=== PATIENT | female | born 1960 | race Caucasian/White ===

== ENCOUNTER → 2017-01-11 | Outpatient (CLI) | payer BC ==
--- NOTE | 2017-01-11 17:11 | REP ---
BILATERAL MAMMOGRAM: History of breast cancer in paternal grandmother. No comparison study. MLO and CC views of both breasts are performed. Moderate fibroglandular tissue is seen bilaterally. Possible 7 mm nodular opacity is seen in the upper outer quadrant of the left breast. Spot compression views and ultrasound recommended to further evaluate. Tiny calcifications are seen in upper outer quadrant of the right breast. Recommend magnification views to further evaluate. IMPRESSION: ACR 0 incomplete. Tiny calcifications upper outer quadrant right breast. Recommend magnification views to further evaluate. Possible 7 mm nodule upper outer quadrant of the left breast. Recommend spot compression views and ultrasound to further evaluate. BI-RADS/ACR category 0 mammogram, incomplete. Additional imaging and/or prior images are needed before a final assessment can be assigned. This mammogram was interpreted with the aid of an FDA-approved computer-aided detection system. The patient states she had a clinical breast exam in 12/2016. The patient letter being requested is M0.
== END ==
LOC: M WHC 15:07
PROVIDERS: ATTEND Nurse Practitioner Family
DX: Z12.31 Encounter for screening mammogram for malignant neoplasm of breast (principal)

== ENCOUNTER → 2017-01-16 | Outpatient (CLI) | payer BC ==
--- NOTE | 2017-01-16 17:16 | REP ---
LEFT BREAST ULTRASOUND: 01/16/2017: Comparison: Diagnostic digital bilateral mammogram 01/16/2017, screening mammogram 01/11/2017. Clinical history: Persistent nodular density upper outer quadrant left breast for ultrasound. Sonographic evaluation of the upper outer quadrant of the left breast scanning from 12 to 3 o'clock shows at 1 o'clock a septated cyst about 1.9 cm from the nipple. It measures 5 x 4 x 3 mm and has no mammographic correlate. About 3 cm from the nipple also at 1 o'clock is a larger more complex cystic area 6 x 6 x 4 mm. It has some internal echoes but still with some through transmission. At the 3 o'clock position. There is some mildly dilated ducts without filling defects. Impression: 1. The larger complex cystic area with multiple internal echoes and/or septation 6 x 6 x 4 mm at 1 o'clock position right breast about 3 cm from the nipple corresponding to the mammographic finding. The smaller septated cysts were two adjacent cysts seen at 1 o'clock, closer to the nipple, but without the mammographic correlation. Please see the mammography report this date for final assessment and recommendation. Signed by Stef Zhang MD 01/16/2017 05:48 P
--- NOTE | 2017-01-16 17:27 | REP ---
BILATERAL DIAGNOSTIC DIGITAL MAMMOGRAM: 01/16/2017: Comparison: 01/11/2017, screening mammogram. Clinical history: Recent screening mammogram with calcifications in the upper outer quadrant of the right breast for magnification views and nodular density upper outer quadrant of the left breast for ultrasound and spot magnification views. Findings: Spot magnified CC, MLO and true MLO views of each breast were obtained. Right breast: Spot magnified views show two or three calcifications adjacent in the upper outer quadrant right breast. This does not define a cluster. I do not see other suspicious group of clusters of microcalcification, areas of architectural distortion, dominant mass, skin thickening or other secondary sign of malignancy. A mole marker placed over upper outer quadrant right breast, near the axillary tail or a skin mole. Left breast: In the upper outer quadrant of the left breast at about the 1 o'clock position is a 8 x 7 mm oval nodule. Slightly lobulated. It projects over parenchyma on the CC view and surrounded by fat on the MLO view and ML view without suspicious calcifications. There is no other nodule, mass, clustered microcalcification, skin thickening or other secondary sign of malignancy. Left breast ultrasound: The breast ultrasound showed a 6 x 6 x 4 mm complex cystic area in the left breast upper outer quadrant 1 o'clock position about 3 cm from the nipple. It has internal echoes and and/or multiple septations. A smaller septated cyst or two adjacent small cysts totaling 5 x 4 x 3 mm is seen at 1 o'clock position. 1.9 cm from the nipple, but without a mammographic correlation. There are a few mildly dilated ducts at the 3 o'clock position without filling defect. Impression: 1. BIRADS ACR category 4 suspicious, suspicious abnormality. Biopsy should be considered. Ultrasound guided biopsy/cyst aspiration at the 1 o'clock position left breast about 3 cm from nipple, where there is a 6 x 6 x 4 mm complex cystic lesion. The other cyst with septation or two adjacent cysts does not warrant further evaluation. 2. Calcifications in the upper outer quadrant of the right breast are only 2 to 3 in number and do not constitute a cluster or suspicious finding. This mammogram was interpreted with the aid of an FDA-approved computer-aided detection system. The patient states she had a clinical breast exam in 12/2016. The patient letter being requested is M4 dense. Signed by Stef Zhang MD 01/16/2017 05:50 P
== END ==
LOC: M RAD 14:53
PROVIDERS: ATTEND Nurse Practitioner Family
DX: R92.8 Other abnormal and inconclusive findings on diagnostic imaging of breast (principal)

== ENCOUNTER → 2017-02-07 | Outpatient (CLI) | payer BC ==
[~2017-02-07] MED LIST: ACETAMINOPHEN 325 MG TAB As Ordered ONE; LIDOCAINE 1% MDV 20ML VIAL As Ordered ONE
--- NOTE | 2017-02-07 11:13 | REP ---
DIGITAL DIAGNOSTIC UNILATERAL LEFT BREAST MAMMOGRAM WITH CAD: HISTORY: Two-view mammogram post clip marker placement views. Patient is status post ultrasound-guided needle biopsy. Comparison mammography is from January 16, 2017. FINDINGS: Left CC and true MLO views demonstrate marker clip in position at or within the nodular opacity which projected in the upper outer quadrant of the left breast on the January 16, 2017 prior study. No hematoma is seen. IMPRESSION: Marker clip in good position. Signed by Yasir Brown MD 02/07/2017 06:17 P
--- NOTE | 2017-02-07 15:42 | REP ---
ULTRASOUND GUIDED LEFT BREAST BIOPSY: The procedure was performed under the direct supervision of Dr. Brown. The patient has a history of a 6 x 6 x 4 mm complex cystic area with multiple internal echoes and/or septations at the 1-o'clock position of the left breast seen on a previous ultrasound dated 01/16/2017. The risks and benefits of the procedure were explained to the patient and informed consent was obtained. The left breast nodule was localized using ultrasound guidance. The skin was prepped and draped in a sterile fashion. 1% Xylocaine was used as a local anesthetic. A 13-gauge suction-assisted Mammotome needle was inserted and 4 core biopsy samples were obtained. A marker clip was placed at the biopsy site. The patient tolerated the procedure well and there were no immediate complications. After the appropriate amount of monitored convalescence the patient was discharged from the department. Reviewed by LAUREN Senior 02/07/2017 04:29 PEdited and Signed by Yasir Brown MD 02/07/2017 06:13 P
== END | disposition home or self-care (01) ==
LOC: M RADPRO 09:13
PROVIDERS: ATTEND Surgery
DX: N60.92 Unspecified benign mammary dysplasia of left breast (principal); F17.200 Nicotine dependence, unspecified, uncomplicated
CPT/HCPCS: 19083; 88305; G0206

== ENCOUNTER → 2017-05-02 | Outpatient (REF) | payer BC | LOC: M SFHCPLAZ 14:58 | PROVIDERS: ATTEND Family Medicine | DX: R53.83 Other fatigue (principal) ==

== ENCOUNTER → 2017-06-21 | Outpatient (REF) | payer BC ==
[2017-06-21 17:21] LABS: MEAN CORPUSCULAR HEMOGLOBIN 31.8 pg (27.0-33.0); MEAN CORPUSCULAR HGB CONC 33.1 g/dl (32.0-36.5); MEAN CORPUSCULAR VOLUME 96.2 fl (80.0-96.0); RED CELL DISTRIBUTION WIDTH 12.6 % (11.5-14.5); WHITE BLOOD COUNT 10.7 K/mm3 (4.0-10.0)
[2017-06-21 17:30] LABS: INR 0.98
== END ==
LOC: M SFHCPLAZ 15:49
PROVIDERS: ATTEND Family Medicine
DX: R23.8 Other skin changes (principal)

== ENCOUNTER → 2017-08-01 | Outpatient (REF) | payer BC | LOC: M SFHCPLAZ 14:52 | PROVIDERS: ATTEND Family Medicine | DX: Z78.9 Other specified health status (principal) ==

== ENCOUNTER → 2018-02-01 | Outpatient (CLI) | payer BC ==
[2018-02-01 12:14] LABS: CHOLESTEROL LEVEL 243 MG/DL (<200); CHOLESTEROL RISK RATIO 3.375 (<5); GLUCOSE, FASTING 105 MG/DL (70-100); HDL CHOLESTEROL 72 MG/DL (>40); NON-HDL-C 171 MG/DL; TRIGLYCERIDES LEVEL 165 MG/DL (<150)
== END ==
LOC: M LAB 11:19
DX: Z12.31 Encounter for screening mammogram for malignant neoplasm of breast (principal); Z64.4 Discord with counselors; R07.1 Chest pain on breathing; M79.672 Pain in left foot; Z13.1 Encounter for screening for diabetes mellitus; Z13.220 Encounter for screening for lipoid disorders
CPT/HCPCS: 71101

== ENCOUNTER → 2018-03-22 | Outpatient (REF) | payer BC ==
[2018-03-22 15:49] LABS: ESTIMATED AVERAGE GLUCOSE 123 MG/DL (60-110); HEMOGLOBIN A1c 5.9 %
== END ==
LOC: M SFHCPLAZ 13:24
DX: R73.01 Impaired fasting glucose (principal)
CPT/HCPCS: 83036

== ENCOUNTER 2018-07-09 08:18 | Day surgery (SDC) | payer BC ==
[2018-07-09] MEDS: NS 1,000 ML IV (08:30)
[2018-07-09] MEDS ORDERED: PROPOFOL 200 MG/20 ML VIAL As Ordered ×2 (09:00→09:10)
== END 2018-07-09 10:11 | disposition home or self-care (01) ==
LOC: M OPP 08:18
DX: Z12.11 Encounter for screening for malignant neoplasm of colon (principal); K62.1 Rectal polyp; K57.30 Diverticulosis of large intestine without perforation or abscess without bleeding; Z80.0 Family history of malignant neoplasm of digestive organs; F41.9 Anxiety disorder, unspecified; F32.9 Major depressive disorder, single episode, unspecified; B19.9 Unspecified viral hepatitis without hepatic coma; Z79.899 Other long term (current) drug therapy; Z78.0 Asymptomatic menopausal state; Z98.51 Tubal ligation status; F17.210 Nicotine dependence, cigarettes, uncomplicated
CPT/HCPCS: 45385

== ENCOUNTER → 2018-08-07 | Outpatient (CLI) | payer BC | LOC: M RAD 14:45 | DX: R29.898 Other symptoms and signs involving the musculoskeletal system (principal) | CPT/HCPCS: 70551 ==

== ENCOUNTER → 2018-09-26 | Outpatient (REF) | payer BC ==
[2018-10-02 14:49] LABS: HPV HYBRID CAPTURE II Negative (Negative)
== END ==
LOC: M SFHCPLAZ 11:38
DX: Z12.4 Encounter for screening for malignant neoplasm of cervix (principal)
CPT/HCPCS: G0123

== ENCOUNTER → 2019-01-27 | Outpatient (CLI) | payer BC ==
[~2019-01-27] MED LIST changes: -ACETAMINOPHEN 325 MG TAB As Ordered ONE; +ESCI10TA2; -LIDOCAINE 1% MDV 20ML VIAL As Ordered ONE
--- NOTE | 2019-01-27 20:27 | REP ---
Clinical: Cervical adenopathy. Technique: Real time whitt scale and color evaluation using linear high frequency transducer. Findings: Directed ultrasound examination along the right side of the neck appears normal and without evidence for adenopathy. The palpable area on physical examination corresponds to the submandibular gland. Impression: No adenopathy. Palpable mass on physical examination corresponds to submandibular gland. Electronically Signed by Gabino Brooke MD 01/27/2019 08:19 P
== END ==
LOC: M RAD 14:45
PROVIDERS: ATTEND Family Medicine
DX: I89.0 Lymphedema, not elsewhere classified (principal)

== ENCOUNTER → 2019-01-31 | Outpatient (CLI) | payer BC ==
--- NOTE | 2019-01-31 13:33 | REPMRS ---
Patient History The patient states she had a clinical breast exam in 08/13 Patient is postmenopausal. Family history of breast cancer at age 50 or over in paternal grandmother, colorectal cancer in father. Benign US guided breast biopsy of the left breast, February 07, 2017. Benign lumpectomy of the right breast, 2000. 3D TOMOSYNTHESIS WAS PERFORMED. Digital Woman Screen Mammo: January 31, 2019 - Exam #: [id number] Bilateral CC and MLO view(s) were taken. Technologist: Tonya Sorto, Technologist Prior study comparison: February 01, 2018, left breast digital mammo diagnostic bilateral, performed at [facility]. February 07, 2017, left breast digital mammo diagnostic unilateral, performed at [facility]. FINDINGS: The breast tissue is heterogeneously dense. This may lower the sensitivity of mammography. There has been no change in the appearance of the mammogram from the prior studies. There is a moderate amount of residual fibroglandular tissue which is fairly symmetric. There is no interval development of dominant mass, areas of architectural distortion, or clustered microcalcification typical of malignancy. Assessment: BI-RADS/ACR category 1 mammogram. Negative Mammogram. Recommendation Routine screening mammogram in 1 year (for women over age 40). This mammogram was interpreted with the aid of an FDA-approved computer-aided dectection system. Electronically Signed By: Castillo Moss MD 01/31/19 [id number]
== END ==
LOC: M WHC 12:36
PROVIDERS: ATTEND Physician Assistant
DX: Z12.31 Encounter for screening mammogram for malignant neoplasm of breast (principal); Z78.0 Asymptomatic menopausal state; Z86.018 Personal history of other benign neoplasm

== ENCOUNTER → 2019-02-21 | Outpatient (CLI) | payer BC ==
--- NOTE | 2019-02-21 15:15 | REP ---
CT chest without contrast: History: Abnormal lung field findings. Comparison study is rib series from February 01, 2018. No other comparison chest imaging available. CT findings: Preliminary digital painter ski edge radiograph is unremarkable. There are emphysematous changes in the upper lobes of the lungs bilaterally mild to moderate in degree. There is no evidence of pleural effusion or pericardial effusion. No infiltrate is seen. No hilar or mediastinal mass or adenopathy is observed. No adrenal lesion is seen. The gallbladder is surgically absent. The visualized upper abdominal structures are otherwise unremarkable. There is some vascular calcification. No significant pulmonary nodule or mass lesion is seen. No bony destructive lesion is observed. Impression: Emphysematous changes in the upper lobes. No other significant finding. Electronically Signed by Yasir Brown MD 02/21/2019 03:35 P
== END ==
LOC: M RAD 14:13
PROVIDERS: ATTEND Physician Assistant
DX: R91.8 Other nonspecific abnormal finding of lung field (principal); J43.9 Emphysema, unspecified

== ENCOUNTER → 2019-04-03 | Outpatient (CLI) | payer BC ==
[~2019-04-03] MED LIST changes: +METHACHOLINE KIT (J7674) INH ONE
--- NOTE | 2019-04-03 15:13 | PFTRPT ---
Site: [facility], [address] [place], [address] ID: [id number] Name: TANA MERCEDES Visit Date: 04/03/2019 Second ID: [id number] Referring Doctor: LIAN Chu, Veronica Desai Reviewing Doctor: Zenon Marr MD Electrician Maintenance: Danay GEE RRT Age: 58 : 1960 Sex: Female Race: Height: 62.00 Inches Weight: 165.00 Lbs BSA: 1.76 Order IDs: [id number] Requested Test(s): <RESP-PFT.METH CHAL> Diagnosis: R94.2 of albuterol for postbronchodilator. Review Status: Not Reviewed Pre-Bronch Post-Bronch Pred Actual %Pred Actual %Chng SPIROMETRY FVC (L) 3.14 3.01 95 2.94 -2 FEV1 (L) 2.45 2.29 93 2.24 -2 FEV1/FVC (%) 79 76 96 76 FEF 25% (L/sec) 4.84 5.45 112 6.01 10 FEF 50% (L/sec) 3.72 2.61 70 2.44 -6 FEF 75% (L/sec) 1.28 0.61 47 0.48 -20 FEF 25-75% (L/sec) 2.36 1.84 77 1.66 -9 FEF Max (L/sec) 6.15 6.52 106 6.07 -6 FIVC (L) 2.79 2.70 -3 FIF 50% (L/sec) 3.52 2.80 79 3.11 10 FIF Max (L/sec) 2.88 3.19 10 Expiratory Time (sec) 6.16 7.73 25 Back Extrap Vol (L) 0.08 0.09 16 Time To FEFmax (sec) 0.072 0.104 44
== END ==
LOC: M CARPUL 14:25
PROVIDERS: ATTEND Physician Assistant
DX: R94.2 Abnormal results of pulmonary function studies (principal)
CPT/HCPCS: 94070; J7674

== ENCOUNTER → 2019-07-09 | Outpatient (CLI) | payer BC ==
[~2019-07-09] MED LIST changes: +GASTROGRAFIN SOLUTION 30ML (Q9963) As Ordered ONE; +ISOVUE-370 76% 100ML VIAL (Q9967) As Ordered ONE; -METHACHOLINE KIT (J7674) INH ONE
[2019-07-09 13:27] LABS: BASO # 0.1 10^3/uL (0.0-0.2); BASO % 0.5 % (0.0-1.0); EOS # 0.1 10^3/uL (0.0-0.50); EOS % 0.5 % (0.0-3.0); HEMATOCRIT 41.3 % (36.0-47.0); HEMOGLOBIN 13.7 g/dl (12.0-15.5); LYMPH # 2.6 10^3/uL (1.5-4.5); LYMPH % 19.9 % (24.0-44.0); MEAN CORPUSCULAR HEMOGLOBIN 31.2 pg (27.0-33.0); MEAN CORPUSCULAR HGB CONC 33.2 g/dl (32.0-36.5); MEAN CORPUSCULAR VOLUME 94.1 fl (80.0-96.0); MONO # 1.1 10^3/uL (0.0-0.8); MONO % 8.3 % (0.0-5.0); NEUTROPHILS # 9.3 10^3/uL (1.8-7.7); NEUTROPHILS % 70.3 % (36.0-66.0); PLATELET COUNT, AUTOMATED 357 10^3/uL (150-450); RED BLOOD COUNT 4.39 10^6/uL (4.00-5.40); WHITE BLOOD COUNT 13.3 10^3/uL (4.0-10.0)
[2019-07-09 13:55] LABS: BLOOD UREA NITROGEN 11 MG/DL (7-18); CALCIUM LEVEL 9.9 MG/DL (8.5-10.1); CARBON DIOXIDE LEVEL 26 MEQ/L (21-32); CHLORIDE LEVEL 104 MEQ/L (98-107); CREATININE FOR GFR 0.94 MG/DL (0.55-1.30); GLOMERULAR FILTRATION RATE > 60.0 (>51); GLUCOSE, FASTING 124 MG/DL (70-100); SODIUM LEVEL 138 MEQ/L (136-145)
[2019-07-09 14:47] LABS: HEMOGLOBIN A1c 6.3 %
--- NOTE | 2019-07-09 16:19 | REP ---
CT abdomen and pelvis with IV and oral contrast: History: Left lower quadrant pain. No comparison CT study. CT contrast dose: 100 ml of intravenous Isovue 370. CT findings: Preliminary digital restaurant hostess radiograph shows clips in the right upper quadrant and a normal bowel gas pattern. The lung bases show mild fibrosis or discoid atelectasis in the right lower lobe. There is diffuse fatty infiltration of the liver. No focal liver lesion is apparent. The gallbladder is surgically absent. The common bile duct measures 11 mm in greatest diameter. No intrahepatic ductal dilation is observed. There is a small descending duodenal diverticulum filled with air. No pancreatic lesion is seen. No adrenal lesion is observed on either side. The kidneys enhance symmetrically and are morphologically intact. No retroperitoneal mass or adenopathy is seen. There is mural thickening and pericolonic fat streaking in the sigmoid colon adjacent to diverticulosis changes consistent with acute diverticulitis. No abscess or free air is apparent. No uterine or ovarian abnormality is seen. No abdominal wall defect is observed. Bone window settings show no bony destructive lesion. Impression: Findings consistent with acute diverticulitis in the sigmoid colon. There is no evidence of abscess or free air. Post cholecystectomy. Fatty infiltration of the liver. Electronically Signed by Yasir Brown MD 07/09/2019 09:06 P
== END ==
LOC: M RAD 12:51
PROVIDERS: ATTEND Family Medicine
DX: K57.92 Diverticulitis of intestine, part unspecified, without perforation or abscess without bleeding (principal); Z90.49 Acquired absence of other specified parts of digestive tract; K76.0 Fatty (change of) liver, not elsewhere classified
CPT/HCPCS: 74177; 80048; 83036; 85025; Q9963; Q9967

== ENCOUNTER 2020-01-07 09:26 | Emergency (ER) | payer BC ==
[~2020-01-07] VITALS: Ht 157.5 cm; Wt 76.8 kg
[~2020-01-07 09:26] MED LIST changes: -GASTROGRAFIN SOLUTION 30ML (Q9963) As Ordered ONE; -ISOVUE-370 76% 100ML VIAL (Q9967) As Ordered ONE
[2020-01-07] MEDS ORDERED: BREO1INH3 PO (12:08)
[2020-01-07] MEDS ORDERED: SYMB16INH INH (12:08)
[2020-01-07 12:13] LABS: BASO # 0.1 10^3/uL (0.0-0.2); BASO % 0.7 % (0.0-1.0); EOS # 0.1 10^3/uL (0.0-0.5); EOS % 1.1 % (0.0-3.0); HEMATOCRIT 41.1 % (36.0-47.0); HEMOGLOBIN 13.7 g/dl (12.0-15.5); LYMPH # 2.9 10^3/uL (1.5-5.0); LYMPH % 40.7 % (24.0-44.0); MEAN CORPUSCULAR HEMOGLOBIN 31.3 pg (27.0-33.0); MEAN CORPUSCULAR HGB CONC 33.3 g/dl (32.0-36.5); MEAN CORPUSCULAR VOLUME 93.8 fl (80.0-96.0); MONO # 0.6 10^3/uL (0.0-0.8); MONO % 8.7 % (0.0-5.0); NEUTROPHILS # 3.5 10^3/uL (1.5-8.5); NEUTROPHILS % 48.5 % (36.0-66.0); PLATELET COUNT, AUTOMATED 389 10^3/uL (150-450); RED BLOOD COUNT 4.38 10^6/uL (4.00-5.40); WHITE BLOOD COUNT 7.2 10^3/uL (4.0-10.0)
[2020-01-07 12:19] LABS: AMORPHOUS SEDIMENT SMALL (NEGATIVE); APPEARANCE, URINE CLEAR (CLEAR); BACTERIA, URINE AUTO NEGATIVE (NEGATIVE); BILIRUBIN, URINE AUTO NEGATIVE (NEGATIVE); BLOOD, URINE BLOOD NEGATIVE (NEGATIVE); COLOR, URINE YELLOW (YELLOW); GLUCOSE, URINE (UA) AUTO NEGATIVE (NEGATIVE); KETONE, URINE AUTO NEGATIVE (NEGATIVE); LEUKOCYTE ESTERASE, URINE AUTO TRACE (NEGATIVE); NITRITE, URINE AUTO NEGATIVE (NEGATIVE); PROTEIN, URINE AUTO NEGATIVE (NEGATIVE); RBC, URINE AUTO 1 /HPF (0-3); SPECIFIC GRAVITY URINE AUTO 1.006 (1.002-1.035); SQUAMOUS EPITHELIAL CELL UR AU 1 /HPF (0-6); UROBILINOGEN, URINE AUTO 0.2 mg/dL (0.0-2.0); WBC, URINE AUTO 1 /HPF (0-3)
[2020-01-07] MEDS ORDERED: ONDANSETRON 4MG/2ML VIAL (J2405) IV ONE (13:00)
[2020-01-07] MEDS ORDERED: KETOROLAC 30 MG/ML VIAL (J1885) IV ONE (13:00)
--- NOTE | 2020-01-07 14:03 | REP ---
MAXILLOFACIAL CT STUDY WITHOUT CONTRAST: HISTORY: Headache and facial pain. Comparison head CT images are from August 03, 2005. CT FINDINGS: Digital preliminary [employer] scout radiograph is unremarkable. The patient is edentulous. No bony destructive lesion is seen in the mandible or maxilla. The maxillary sinuses are clear. Ethmoid, sphenoid, frontal, and mastoid air cells are clear. Bony sinus margins are intact. No intraorbital soft tissue mass is seen. Deep facial soft tissues are unremarkable and symmetric. Submandibular and parotid glands are normal and symmetric. No intracranial abnormality is appreciated. The middle ear cavities are aerated. There is mild vascular calcification in the right internal carotid artery. IMPRESSION: Negative maxillofacial CT study. No acute abnormality. Electronically Signed by Yasir Brown MD 01/07/2020 04:07 P
[2020-01-07 14:05] LABS: INFLUENZA A AMPLIFICATION NEGATIVE (NEGATIVE); INFLUENZA B AMPLIFICATION NEGATIVE (NEGATIVE)
--- NOTE | 2020-01-07 14:07 | REP ---
CT BRAIN WITHOUT CONTRAST: HISTORY: Headache. Face pain. Comparison head CT study August 03, 2005. CT FINDINGS: Digital preliminary telephone supervisor radiograph shows that the patient is edentulous. Bone window settings demonstrate an intact bony calvarium. No bony destructive lesion is seen. Visualized paranasal sinuses are clear. No intraorbital abnormality is seen. On soft tissue window settings, lateral, fourth, and third ventricles are normal in size and position. Moss/white differentiation pattern is normal above below the tentorium. There is no evidence of intracranial hemorrhage. No mass, infarction, extra-axial fluid collection, or midline shift is appreciated. There is minimal vascular calcification in the right internal carotid artery. IMPRESSION: No acute intracranial abnormality. Electronically Signed by Yasir Brown MD 01/07/2020 04:08 P
[2020-01-07] MEDS ORDERED: MECLIZINE 25 MG TABLET PO ONE (15:00)
--- NOTE | 2020-01-07 17:25 | REP ---
MRI brain without contrast: History: Vertigo. Comparison head CT study is reviewed from this date. Comparison brain MRI is from August 07, 2018. Technique: Axial and sagittal imaging planes are utilized for T1 and T2-weighted scans. Sequences include spin-echo, fast spin echo, FLAIR, and diffusion weighted sequences. MRI findings: No bony calvarial lesion is seen. Craniocervical junction and upper cervical cord remain unremarkable. No intraorbital abnormality is seen. There is no MR evidence of significant paranasal sinus disease. Diffusion weighted scans show no focus of restricted diffusion to suggest ischemia. There is no evidence of infarct, hemorrhage, extra-axial fluid collection, or midline shift. T2-weighted scans demonstrate scattered foci of subcortical and periventricular white matter T2 hyperintensity consistent with microvascular ischemic changes. These are unchanged from the August 23, 2018 prior study. Impression: Small vessel changes again noted unchanged from August 07, 2018. No acute intracranial abnormality. Electronically Signed by Yasir Brown MD 01/08/2020 10:12 A
[2020-01-07 17:45] VITALS: BP 120/77
[2020-01-07] MEDS ORDERED: MECL1TAB31 PO (17:53)
[2020-01-07] MEDS ORDERED: METO5TAB2 PO (17:53)
--- NOTE | 2020-01-07 20:17 | ECGEPIP ---
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
== END 2020-01-07 18:03 | disposition home or self-care (01) ==
LOC: M ED 09:26
DX: R42 Dizziness and giddiness (principal); J44.9 Chronic obstructive pulmonary disease, unspecified; F41.9 Anxiety disorder, unspecified; Z79.899 Other long term (current) drug therapy; Z87.891 Personal history of nicotine dependence
CPT/HCPCS: 70450; 70486; 70551; 80047; 81001; 85025; 87502; 93005; 96374; 96375; 97112; 97161; 99285; J1885; J2405

== ENCOUNTER → 2020-01-19 | Outpatient (CLI) | payer BC ==
[~2020-01-19] MED LIST changes: +BREO1INH3 PO; +MECL1TAB31 PO; +METO5TAB2 PO; +SYMB16INH INH
--- NOTE | 2020-01-19 12:59 | REPPI ---
PELVIS: AP views of the pelvis are performed. There is no acute fracture, dislocation, or intrinsic bone disease. Sacroiliac joints appear unremarkable. Hip joints appear normal. IMPRESSION: Negative exam pelvis. Electronically Signed by Castillo Moss MD 01/19/2020 03:59 P
--- NOTE | 2020-01-19 13:00 | REPPI ---
RIGHT HIP, TWO VIEWS: Two views right hip performed. There is no acute fracture, dislocation, or intrinsic bone disease. Hip joint appears normal. IMPRESSION: Negative right hip series. Electronically Signed by Castillo Moss MD 01/19/2020 03:59 P
== END ==
LOC: M PLALAB 10:45 → M WHC 10:45
PROVIDERS: ATTEND Family Medicine
DX: M25.551 Pain in right hip (principal)

== ENCOUNTER → 2021-02-07 | Outpatient (REF) | payer BC ==
[~2021-02-07] MED LIST changes: +ESCI10TA16; -ESCI10TA2
[2021-02-07 15:12] LABS: APPEARANCE, URINE CLEAR (CLEAR); BACTERIA, URINE AUTO NEGATIVE (NEGATIVE); BILIRUBIN, URINE AUTO NEGATIVE (NEGATIVE); BLOOD, URINE BLOOD NEGATIVE (NEGATIVE); COLOR, URINE YELLOW (YELLOW); GLUCOSE, URINE (UA) AUTO NEGATIVE (NEGATIVE); KETONE, URINE AUTO NEGATIVE (NEGATIVE); LEUKOCYTE ESTERASE, URINE AUTO 1+ (NEGATIVE); MUCUS, URINE SMALL (NEGATIVE); NITRITE, URINE AUTO NEGATIVE (NEGATIVE); PROTEIN, URINE AUTO NEGATIVE (NEGATIVE); RBC, URINE AUTO 0 /HPF (0-3); SPECIFIC GRAVITY URINE AUTO 1.012 (1.002-1.035); SQUAMOUS EPITHELIAL CELL UR AU 2 /HPF (0-6); UROBILINOGEN, URINE AUTO 0.2 mg/dL (0.0-2.0); WBC, URINE AUTO 2 /HPF (0-3)
[2021-02-07 15:44] LABS: BLOOD UREA NITROGEN 12 MG/DL (7-18); CALCIUM LEVEL 9.6 MG/DL (8.5-10.1); CARBON DIOXIDE LEVEL 25 MEQ/L (21-32); CHLORIDE LEVEL 107 MEQ/L (98-107); CHOLESTEROL LEVEL 287 MG/DL (<200); CHOLESTEROL RISK RATIO 3.416 (<5); CREATININE FOR GFR 0.86 MG/DL (0.55-1.30); GLOMERULAR FILTRATION RATE > 60.0 (>51); GLUCOSE, FASTING 100 MG/DL (70-100); HDL CHOLESTEROL 84 MG/DL (>40); LDL CHOLESTEROL 170 MG/DL (<100); MAGNESIUM LEVEL 2.2 MG/DL (1.8-2.4); NON-HDL-C 203 MG/DL; POTASSIUM SERUM 4.2 MEQ/L (3.5-5.1); SODIUM LEVEL 139 MEQ/L (136-145); TRIGLYCERIDES LEVEL 166 MG/DL (<150)
== END ==
LOC: M SFHCPLAZ 13:47
PROVIDERS: ATTEND Family Medicine
DX: Z13.220 Encounter for screening for lipoid disorders (principal); R25.2 Cramp and spasm; N39.43 Post-void dribbling

== ENCOUNTER → 2021-02-10 | Outpatient (CLI) | payer BC ==
--- NOTE | 2021-02-10 15:13 | REPMRS ---
Patient History The patient states she has not had a clinical breast exam in over a year. Family history of breast cancer at age 50 or over in paternal grandmother, colorectal cancer in father. Benign US guided breast biopsy of the left breast, February 07, 2017. Benign lumpectomy of the right breast, 2000. Digital Woman Screen Mammo: February 10, 2021 - Exam #: [id number] Bilateral CC and MLO view(s) were taken. Technologist: RT Helga Prior study comparison: January 31, 2019, bilateral digital woman screen mammo performed at [facility]. February 01, 2018, left breast digital mammo diagnostic bilateral, performed at [facility]. January 11, 2017, digital woman screen mammo performed at [facility]. FINDINGS: There are scattered fibroglandular densities. The Volpara volumetric breast density category is:B. There has been no change in the appearance of the mammogram from the prior studies. There is a mild amount of scattered fibroglandular density which is fairly symmetric. There is no interval development of dominant mass, architectural distortion, or grouped microcalcification suggestive of malignancy. 3-D tomosynthesis shows no additional findings. Assessment: BI-RADS/ACR category 1 mammogram. Negative Mammogram. Recommendation Routine screening mammogram of both breasts in 1 year (for women over age 40). This patient's [facility] Lifetime Breast Cancer Risk is estimated at 10.2 %. This mammogram was interpreted with the aid of an FDA-approved computer-aided dectection system. Electronically Signed By: Percy Brown MD 02/10/21 [id number]
== END ==
LOC: M WHC 14:19
PROVIDERS: ATTEND Family Medicine
DX: Z12.31 Encounter for screening mammogram for malignant neoplasm of breast (principal)

== ENCOUNTER → 2021-02-25 | Outpatient (REF) | payer BC | LOC: M SMT 16:49 | PROVIDERS: ATTEND Urology | DX: R35.0 Frequency of micturition (principal) ==

== ENCOUNTER → 2021-05-02 | Outpatient (CLI) | payer BC ==
[~2021-05-02] MED LIST changes: +ISOVUE-370 76% 100ML VIAL As Ordered ONE
--- NOTE | 2021-05-02 18:04 | REPVR ---
PROCEDURE INFORMATION: Exam: CT Neck With Contrast Exam date and time: 05/02/2021 5:40 PM Age: 61 years old Clinical indication: Lymphangitis, acute; Additional info: Chronic rhinitis / chronic laryngitis TECHNIQUE: Imaging protocol: Computed tomography images of the neck with contrast. Radiation optimization: All CT scans at this facility use at least one of these dose optimization techniques: automated exposure control; mA and/or kV adjustment per patient size (includes targeted exams where dose is matched to clinical indication); or iterative reconstruction. Contrast material: ISOVUE 370; Contrast volume: 75 ml; Contrast route: INTRAVENOUS (IV); COMPARISON: Thyroid, ST head+neck US 01/27/2019 2:55 PM FINDINGS: Nasopharynx: Unremarkable. Oropharynx: Unremarkable. No significant tonsillar enlargement. Hypopharynx: Unremarkable. Larynx: Unremarkable. Normal epiglottis. Retropharyngeal space: Unremarkable. Submandibular/Parotid glands: Normal. Glands are normal in size. Thyroid: Normal. No enlarged or calcified nodules. Lymph nodes: Unremarkable. No lymphadenopathy. Trachea: Visualized trachea is unremarkable. Lungs: Atelectasis posterior aspects both upper lobes. Bones/joints: Unremarkable. No acute fracture. Soft tissues: Unremarkable. No significant soft tissue swelling. IMPRESSION: No acute findings. Electronically signed by: Marin Lee On 05/02/2021 18:04:39 PM
--- NOTE | 2021-05-02 18:05 | REPVR ---
PROCEDURE INFORMATION: Exam: CT Maxillofacial Without Contrast, Sinus Exam date and time: 05/02/2021 5:40 PM Age: 61 years old Clinical indication: Sinusitis; Chronic; Additional info: Chronic rhinitis / chronic laryngitis TECHNIQUE: Imaging protocol: CT Maxillofacial without contrast. Focus on the sinuses. Radiation optimization: All CT scans at this facility use at least one of these dose optimization techniques: automated exposure control; mA and/or kV adjustment per patient size (includes targeted exams where dose is matched to clinical indication); or iterative reconstruction. COMPARISON: CT Maxilofacial w/out contrast 01/07/2020 12:55 PM FINDINGS: Frontal sinuses: Normal. No air-fluid levels. Ethmoid air cells: Normal. No air-fluid levels. Sphenoid sinuses: Normal. No air-fluid levels. Maxillary sinuses: Normal. No air-fluid levels. Ostiomeatal units are patent. Nasal cavity/Septum: Unremarkable. Orbital cavity: Orbits are normal. Globes are unremarkable. Bones/joints: Unremarkable. Soft tissues: Unremarkable. IMPRESSION: Unremarkable sinuses. Electronically signed by: Marin Lee On 05/02/2021 18:05:46 PM
== END ==
LOC: M RAD 17:03
PROVIDERS: ATTEND Otolaryngology
DX: J31.0 Chronic rhinitis (principal); J37.0 Chronic laryngitis
CPT/HCPCS: 70486; 70491; Q9967

== ENCOUNTER → 2021-11-10 | Outpatient (REF) | payer BC ==
[~2021-11-10] MED LIST changes: -ISOVUE-370 76% 100ML VIAL As Ordered ONE
== END ==
LOC: M SFHCPLAZ 16:53
PROVIDERS: ATTEND Physician Assistant
DX: R09.81 Nasal congestion (principal)

== ENCOUNTER → 2021-11-24 | Outpatient (CLI) | payer BC | LOC: M WHC 14:58 | PROVIDERS: ATTEND Nurse Practitioner Family | DX: Z53.20 Procedure and treatment not carried out because of patient's decision for unspecified reasons (principal) ==

== ENCOUNTER → 2022-01-13 | Outpatient (CLI) | payer BC ==
[2022-01-13 16:17] LABS: INR 0.96; PROTHROMBIN TIME 13.2 SECONDS (12.7-14.5)
[2022-01-13 16:18] LABS: PARTIAL THROMBOPLASTIN TIME 35.2 SECONDS (25.9-37.0)
== END ==
LOC: M PLALAB 13:58
PROVIDERS: ATTEND Family Medicine
DX: R23.8 Other skin changes (principal)

== ENCOUNTER → 2022-01-27 | Outpatient (CLI) | payer BC | LOC: M RAD 13:55 | PROVIDERS: ATTEND Family Medicine | DX: F17.211 Nicotine dependence, cigarettes, in remission (principal) ==

== ENCOUNTER → 2022-02-16 | Outpatient (CLI) | payer BC ==
[~2022-02-16] MED LIST changes: +ATOR1TAB21 PO; +CETI-24 PO; +PARO5TAB PO
== END ==
LOC: M WHC 15:18
PROVIDERS: ATTEND Nurse Practitioner Family
DX: Z12.31 Encounter for screening mammogram for malignant neoplasm of breast (principal)

== ENCOUNTER → 2022-02-25 | Outpatient (CLI) | payer BC ==
[~2022-02-25] MED LIST changes: +LEXA1TAB PO; +NITR0.4S14 SL
== END ==
LOC: M LABSMTC 09:38
PROVIDERS: ATTEND Anesthesiology
DX: Z01.812 Encounter for preprocedural laboratory examination (principal); Z20.822 Contact with and (suspected) exposure to COVID-19

== ENCOUNTER → 2022-06-29 | Outpatient (CLI) | payer BC | LOC: M PLAIMG 15:39 | PROVIDERS: ATTEND Physician Assistant | DX: M79.671 Pain in right foot (principal) ==

== ENCOUNTER → 2022-12-06 | Outpatient (CLI) | payer BC ==
[~2022-12-06] MED LIST changes: +ALBU8.5H INH
== END ==
LOC: M LABSMTC 09:45
PROVIDERS: ATTEND Anesthesiology
DX: Z01.812 Encounter for preprocedural laboratory examination (principal); Z11.52 Encounter for screening for COVID-19

== ENCOUNTER → 2022-12-07 | Outpatient (CLI) | payer BC ==
[2022-12-07 17:39] LABS: BASO # 0.1 10^3/uL (0.0-0.2); BASO % 0.9 % (0.0-1.0); EOS # 0.2 10^3/uL (0.0-0.5); EOS % 2.7 % (0.0-3.0); HEMATOCRIT 44.6 % (36.0-47.0); HEMOGLOBIN 14.3 g/dl (12.0-15.5); LYMPH # 3.2 10^3/uL (1.5-5.0); MEAN CORPUSCULAR HGB CONC 32.1 g/dl (32.0-36.5); MEAN CORPUSCULAR VOLUME 93.5 fl (80.0-96.0); MONO # 0.9 10^3/uL (0.0-0.8); MONO % 11.2 % (2.0-8.0); NEUTROPHILS # 3.5 10^3/uL (1.5-8.5); NEUTROPHILS % 44.1 % (36.0-66.0); PLATELET COUNT, AUTOMATED 377 10^3/uL (150-450); RED BLOOD COUNT 4.77 10^6/uL (4.00-5.40); WHITE BLOOD COUNT 7.9 10^3/uL (4.0-10.0)
[2022-12-07 17:59] LABS: ALBUMIN 3.8 G/DL (3.2-5.2); ALKALINE PHOSPHATASE 99 U/L (46-116); ALT/SGPT 32 U/L (7.0-40); AST/SGOT 26 U/L (<34); BILIRUBIN,TOTAL 0.5 MG/DL (0.3-1.2); BLOOD UREA NITROGEN 11 MG/DL (9-23); CALCIUM LEVEL 9.5 MG/DL (8.3-10.6); CARBON DIOXIDE LEVEL 25 MMOL/L (20-31); CHLORIDE LEVEL 106 MMOL/L (98-107); CHOLESTEROL LEVEL 179 MG/DL (<200); CREATININE FOR GFR 0.84 MG/DL (0.55-1.30); GLOMERULAR FILTRATION RATE > 60.0 (>45); GLUCOSE, FASTING 110 MG/DL (74-106); HDL CHOLESTEROL 68.7 MG/DL (>40); LDL CHOLESTEROL 77.1 MG/DL (<100); NON-HDL-C 110 MG/DL; POTASSIUM SERUM 4.3 MMOL/L (3.5-5.1); SODIUM LEVEL 139 MMOL/L (136-145); TOTAL PROTEIN 6.8 G/DL (5.7-8.2); TRIGLYCERIDES LEVEL 166 MG/DL (<150)
== END ==
LOC: M PLALAB 15:15
PROVIDERS: ATTEND Physician Assistant
DX: Z01.818 Encounter for other preprocedural examination (principal); E78.5 Hyperlipidemia, unspecified

== ENCOUNTER 2022-12-11 07:55 | Day surgery (SDC) | payer BC ==
[~2022-12-11] VITALS: Ht 157.5 cm; Wt 78.9 kg
[~2022-12-11 07:55] MED LIST changes: +BSS IRRIG/VANCO(10MG)/TOBRA(5MG)/EPINEPH(1:1000-0.5CC)500ML BAG-ORONLY IR ONE; +CEFUROXIME 1MG/0.1ML INTRACAMERAL INJ As Ordered ONE; +CYCLOPENTOLATE 1% OPHTH SOLN 2ML BTL OS SCH; +LIDOCAINE 1% SDV 5ML VIAL As Ordered ONE; +LIDOCAINE 3.5 % 1ML OPHTH TOPICAL GEL OU ONE; +OFLOXACIN 0.3 % (OCUFLOX) OPTH SOL 5ML OS ONE; +PHENYLEPHRINE 10% OPHTH SOL 5ML OS PRN; +PHENYLEPHRINE 2.5% OPHTH SOL 2ML OS SCH; +TROPICAMIDE 1% OPHTH SOLN 15ML OS SCH
[2022-12-11] MEDS ORDERED: fentaNYL 100 MCG/2 ML INJECTION As Ordered ONE (08:28)
[2022-12-11] MEDS ORDERED: MIDAZOLAM INJ 2MG/2ML VIAL As Ordered ONE (08:29)
[2022-12-11 09:24] VITALS: BP 118/74
== END 2022-12-11 09:45 | disposition home or self-care (01) ==
LOC: M SDC 07:55
PROVIDERS: ATTEND Ophthalmology
DX: H25.12 Age-related nuclear cataract, left eye (principal); Z87.891 Personal history of nicotine dependence; J43.9 Emphysema, unspecified; Z79.899 Other long term (current) drug therapy; Z90.49 Acquired absence of other specified parts of digestive tract; J30.2 Other seasonal allergic rhinitis; E78.5 Hyperlipidemia, unspecified; R07.9 Chest pain, unspecified; I25.2 Old myocardial infarction; Z98.51 Tubal ligation status; I20.9 Angina pectoris, unspecified; Z79.51 Long term (current) use of inhaled steroids
CPT/HCPCS: 66984; J0697; J2250; J3010; V2632

== ENCOUNTER → 2023-02-01 | Outpatient (CLI) | payer BC ==
[~2023-02-01] MED LIST changes: -BSS IRRIG/VANCO(10MG)/TOBRA(5MG)/EPINEPH(1:1000-0.5CC)500ML BAG-ORONLY IR ONE; -CEFUROXIME 1MG/0.1ML INTRACAMERAL INJ As Ordered ONE; -CYCLOPENTOLATE 1% OPHTH SOLN 2ML BTL OS SCH; -LIDOCAINE 1% SDV 5ML VIAL As Ordered ONE; -LIDOCAINE 3.5 % 1ML OPHTH TOPICAL GEL OU ONE; -OFLOXACIN 0.3 % (OCUFLOX) OPTH SOL 5ML OS ONE; -PHENYLEPHRINE 10% OPHTH SOL 5ML OS PRN; -PHENYLEPHRINE 2.5% OPHTH SOL 2ML OS SCH; -TROPICAMIDE 1% OPHTH SOLN 15ML OS SCH
== END ==
LOC: M RAD 16:00
PROVIDERS: ATTEND Physician Assistant
DX: J44.9 Chronic obstructive pulmonary disease, unspecified (principal); Z87.891 Personal history of nicotine dependence

== ENCOUNTER → 2023-02-08 | Outpatient (REF) | payer BC | LOC: M SFHCPLAZ 17:08 | PROVIDERS: ATTEND Physician Assistant | DX: N30.01 Acute cystitis with hematuria (principal) ==

== ENCOUNTER 2023-02-19 12:12 | Day surgery (SDC) | payer BC ==
[~2023-02-19] VITALS: Ht 157.5 cm; Wt 81.6 kg
[~2023-02-19 12:12] MED LIST changes: +ACETYLCHOLINE OPHTH SOLN 1% 2ML (MIOCHOL-E) As Ordered ONE; +BSS IRRIG/VANCO(10MG)/TOBRA(5MG)/EPINEPH(1:1000-0.5CC)500ML BAG-ORONLY IR ONE; +CEFUROXIME 1MG/0.1ML INTRACAMERAL INJ As Ordered ONE; +CYCLOPENTOLATE 1% OPHTH SOLN 2ML BTL OS SCH; +LIDOCAINE 1% SDV 5ML VIAL As Ordered ONE; +LIDOCAINE 3.5 % 1ML OPHTH TOPICAL GEL OU ONE; +MIDAZOLAM INJ 2MG/2ML VIAL As Ordered ONE; +OFLOXACIN 0.3 % (OCUFLOX) OPTH SOL 5ML OS ONE; +PHENYLEPHRINE 10% OPHTH SOL 5ML OS PRN; +PHENYLEPHRINE 2.5% OPHTH SOL 2ML OS SCH; +fentaNYL 100 MCG/2 ML INJECTION As Ordered ONE
[2023-02-19] MEDS: TROPICAMIDE 1% OPHTH SOLN 15ML OS SCH ×2 (13:24→14:07)
[2023-02-19 14:10] VITALS: BP 135/84
== END 2023-02-19 14:30 | disposition home or self-care (01) ==
LOC: M SDC 12:12
PROVIDERS: ATTEND Ophthalmology
DX: H25.11 Age-related nuclear cataract, right eye (principal); I20.9 Angina pectoris, unspecified; I21.9 Acute myocardial infarction, unspecified; F41.9 Anxiety disorder, unspecified; F32.9 Major depressive disorder, single episode, unspecified; J45.909 Unspecified asthma, uncomplicated; J44.9 Chronic obstructive pulmonary disease, unspecified; G47.33 Obstructive sleep apnea (adult) (pediatric); Z79.51 Long term (current) use of inhaled steroids; Z79.899 Other long term (current) drug therapy
CPT/HCPCS: 66984; 87635; J0697; J2250; J3010

== ENCOUNTER → 2023-03-09 | Outpatient (CLI) | payer BC ==
[~2023-03-09] MED LIST changes: -ACETYLCHOLINE OPHTH SOLN 1% 2ML (MIOCHOL-E) As Ordered ONE; -BSS IRRIG/VANCO(10MG)/TOBRA(5MG)/EPINEPH(1:1000-0.5CC)500ML BAG-ORONLY IR ONE; -CEFUROXIME 1MG/0.1ML INTRACAMERAL INJ As Ordered ONE; -CYCLOPENTOLATE 1% OPHTH SOLN 2ML BTL OS SCH; -LIDOCAINE 1% SDV 5ML VIAL As Ordered ONE; -LIDOCAINE 3.5 % 1ML OPHTH TOPICAL GEL OU ONE; -MIDAZOLAM INJ 2MG/2ML VIAL As Ordered ONE; -OFLOXACIN 0.3 % (OCUFLOX) OPTH SOL 5ML OS ONE; -PHENYLEPHRINE 10% OPHTH SOL 5ML OS PRN; -PHENYLEPHRINE 2.5% OPHTH SOL 2ML OS SCH; -fentaNYL 100 MCG/2 ML INJECTION As Ordered ONE
== END ==
LOC: M SLEEP HO 10:53
PROVIDERS: ATTEND Internal Medicine Cardiovascular Disease
DX: G47.33 Obstructive sleep apnea (adult) (pediatric) (principal)

== ENCOUNTER → 2024-01-04 | Outpatient (CLI) | payer BC ==
[~2024-01-04] MED LIST changes: +MECL-209 PO; -MECL1TAB31 PO
[2024-01-04 18:48] LABS: BASO # 0.1 10^3/uL (0.0-0.2); BASO % 0.8 % (0.0-1.0); EOS # 0.3 10^3/uL (0.0-0.5); EOS % 3.5 % (0.0-3.0); HEMATOCRIT 42.8 % (36.0-47.0); HEMOGLOBIN 14.2 g/dl (12.0-15.5); LYMPH # 3.1 10^3/uL (1.5-5.0); LYMPH % 35.5 % (24.0-44.0); MEAN CORPUSCULAR HEMOGLOBIN 30.9 pg (27.0-33.0); MEAN CORPUSCULAR HGB CONC 33.2 g/dl (32.0-36.5); MONO # 1.1 10^3/uL (0.0-0.8); MONO % 12.2 % (2.0-8.0); NEUTROPHILS # 4.2 10^3/uL (1.5-8.5); NEUTROPHILS % 47.5 % (36.0-66.0); PLATELET COUNT, AUTOMATED 392 10^3/uL (150-450); WHITE BLOOD COUNT 8.8 10^3/uL (4.0-10.0)
[2024-01-04 18:55] LABS: FREE T4 1.02 NG/DL (0.89-1.76); THYROID STIMULATING HORMONE 5.464 uIU/ML (0.55-4.78)
[2024-01-04 18:57] LABS: TOTAL 25(OH) VITAMIN D 28.6 NG/ML (20.0-100.0)
[2024-01-04 18:59] LABS: ALBUMIN 3.8 G/DL (3.2-5.2); ALKALINE PHOSPHATASE 94 U/L (46-116); ALT/SGPT 41 U/L (7.0-40); AST/SGOT 22 U/L (<34); BILIRUBIN,TOTAL 0.3 MG/DL (0.3-1.2); BLOOD UREA NITROGEN 18 MG/DL (9-23); CALCIUM LEVEL 9.1 MG/DL (8.3-10.6); CARBON DIOXIDE LEVEL 23 MMOL/L (20-31); CHLORIDE LEVEL 109 MMOL/L (98-107); CHOLESTEROL LEVEL 160 MG/DL (<200); CHOLESTEROL RISK RATIO 2.73 (<5); CREATININE FOR GFR 0.84 MG/DL (0.55-1.30); GLOMERULAR FILTRATION RATE > 60.0 (>45); GLUCOSE, FASTING 87 MG/DL (74-106); HDL CHOLESTEROL 58.6 MG/DL (>40); LDL CHOLESTEROL 59.6 MG/DL (<100); NON-HDL-C 101.4 MG/DL; POTASSIUM SERUM 4.1 MMOL/L (3.5-5.1); SODIUM LEVEL 140 MMOL/L (136-145); TOTAL PROTEIN 6.9 G/DL (5.7-8.2); TRIGLYCERIDES LEVEL 209 MG/DL (<150)
[2024-01-04 19:04] LABS: HEMOGLOBIN A1c 6.1 % (4.0-6.0)
== END ==
LOC: M PLALAB 15:33
PROVIDERS: ATTEND Nurse Practitioner Family
DX: R53.83 Other fatigue (principal); E78.5 Hyperlipidemia, unspecified; Z13.1 Encounter for screening for diabetes mellitus; E55.9 Vitamin D deficiency, unspecified

== ENCOUNTER → 2024-01-25 | Outpatient (CLI) | payer BC | LOC: M WHC 13:53 | PROVIDERS: ATTEND Nurse Practitioner Family | DX: Z12.31 Encounter for screening mammogram for malignant neoplasm of breast (principal) ==

== ENCOUNTER → 2024-04-25 | Outpatient (CLI) | payer BC | LOC: M RAD 13:19 | PROVIDERS: ATTEND Physician Assistant | DX: Z12.2 Encounter for screening for malignant neoplasm of respiratory organs (principal); Z87.891 Personal history of nicotine dependence; J47.9 Bronchiectasis, uncomplicated; J98.11 Atelectasis; R91.1 Solitary pulmonary nodule; J43.2 Centrilobular emphysema; I70.0 Atherosclerosis of aorta; Z90.49 Acquired absence of other specified parts of digestive tract ==

== ENCOUNTER → 2024-07-11 | Outpatient (CLI) | payer BC ==
[2024-07-11 17:35] LABS: BASO # 0.1 10^3/uL (0.0-0.2); BASO % 1.1 % (0.0-1.0); EOS # 0.2 10^3/uL (0.0-0.5); EOS % 3.1 % (0.0-3.0); HEMATOCRIT 43.9 % (36.0-47.0); HEMOGLOBIN 14.6 g/dl (12.0-15.5); LYMPH % 39.9 % (24.0-44.0); MEAN CORPUSCULAR HGB CONC 33.3 g/dl (32.0-36.5); MEAN CORPUSCULAR VOLUME 93.2 fl (80.0-96.0); MONO # 0.9 10^3/uL (0.0-0.8); MONO % 12.2 % (2.0-8.0); NEUTROPHILS # 3.2 10^3/uL (1.5-8.5); NEUTROPHILS % 43.4 % (36.0-66.0); PLATELET COUNT, AUTOMATED 362 10^3/uL (150-450); RED BLOOD COUNT 4.71 10^6/uL (4.00-5.40); WHITE BLOOD COUNT 7.4 10^3/uL (4.0-10.0)
[2024-07-11 17:47] LABS: HEMOGLOBIN A1c 6.2 % (4.0-6.0)
[2024-07-11 18:18] LABS: ALKALINE PHOSPHATASE 101 U/L (46-116); ALT/SGPT 31 U/L (7.0-40); AST/SGOT 21 U/L (<34); BILIRUBIN,TOTAL 0.6 MG/DL (0.3-1.2); BLOOD UREA NITROGEN 12 MG/DL (9-23); C REACTIVE PROTEIN QUANTITATIV < 0.40 MG/DL (<1.0); CALCIUM LEVEL 9.3 MG/DL (8.3-10.6); CARBON DIOXIDE LEVEL 26 MMOL/L (20-31); CHLORIDE LEVEL 107 MMOL/L (98-107); CHOLESTEROL LEVEL 174 MG/DL (<200); CHOLESTEROL RISK RATIO 2.76 (<5); CREATININE FOR GFR 0.87 MG/DL (0.55-1.30); FREE T4 0.99 NG/DL (0.89-1.76); GLOMERULAR FILTRATION RATE > 60.0 (>45); GLUCOSE, FASTING 94 MG/DL (74-106); POTASSIUM SERUM 4.6 MMOL/L (3.5-5.1); SODIUM LEVEL 137 MMOL/L (136-145); THYROID STIMULATING HORMONE 3.132 uIU/ML (0.55-4.78); TOTAL PROTEIN 7.4 G/DL (5.7-8.2); TRIGLYCERIDES LEVEL 145 MG/DL (<150)
[2024-07-14 14:31] LABS: ANA SCREEN, IFA NEGATIVE (NEGATIVE)
== END ==
LOC: M PLALAB 15:33
PROVIDERS: ATTEND Nurse Practitioner Family
DX: E03.8 Other specified hypothyroidism (principal); E78.5 Hyperlipidemia, unspecified; R21 Rash and other nonspecific skin eruption; R73.01 Impaired fasting glucose

== ENCOUNTER → 2024-11-06 | Outpatient (CLI) | payer BC ==
[2024-11-06 13:52] LABS: BASO # 0.1 10^3/uL (0.0-0.2); BASO % 1.2 % (0.0-1.0); EOS # 0.2 10^3/uL (0.0-0.5); EOS % 3.1 % (0.0-3.0); HEMATOCRIT 45.1 % (36.0-47.0); HEMOGLOBIN 14.8 g/dl (12.0-15.5); LYMPH # 2.9 10^3/uL (1.5-5.0); LYMPH % 37.3 % (24.0-44.0); MEAN CORPUSCULAR HEMOGLOBIN 30.5 pg (27.0-33.0); MEAN CORPUSCULAR HGB CONC 32.8 g/dl (32.0-36.5); MONO # 0.8 10^3/uL (0.0-0.8); MONO % 9.7 % (2.0-8.0); NEUTROPHILS # 3.7 10^3/uL (1.5-8.5); NEUTROPHILS % 48.3 % (36.0-66.0); PLATELET COUNT, AUTOMATED 358 10^3/uL (150-450); RED BLOOD COUNT 4.85 10^6/uL (4.00-5.40); WHITE BLOOD COUNT 7.7 10^3/uL (4.0-10.0)
[2024-11-06 14:09] LABS: FERRITIN 155.2 NG/ML (7.3-270.7); TOTAL 25(OH) VITAMIN D 20.6 NG/ML (20.0-100.0)
[2024-11-06 14:11] LABS: ALBUMIN 3.7 G/DL (3.2-5.2); ALKALINE PHOSPHATASE 95 U/L (35-104); ALT/SGPT 30 U/L (7.0-40); AST/SGOT 20 U/L (<34); BILIRUBIN,TOTAL 0.6 MG/DL (0.3-1.2); BLOOD UREA NITROGEN 12 MG/DL (9-23); CALCIUM LEVEL 10.1 MG/DL (8.3-10.6); CARBON DIOXIDE LEVEL 26 MMOL/L (20-31); CHLORIDE LEVEL 106 MMOL/L (98-107); GLOMERULAR FILTRATION RATE > 60.0 (>45); GLUCOSE, FASTING 98 MG/DL (74-106); POTASSIUM SERUM 4.5 MMOL/L (3.5-5.1); PTH INTACT 54.4 PG/ML (18.5-88.0); SODIUM LEVEL 138 MMOL/L (136-145); TOTAL PROTEIN 7.3 G/DL (5.7-8.2)
== END ==
LOC: M PLALAB 11:43
PROVIDERS: ATTEND Family Medicine
DX: E55.9 Vitamin D deficiency, unspecified (principal); R73.01 Impaired fasting glucose; E78.5 Hyperlipidemia, unspecified

== ENCOUNTER 2024-11-13 11:04 | Day surgery (SDC) | payer BC ==
[~2024-11-13] VITALS: Ht 157.5 cm; Wt 84.8 kg
[2024-11-13] MEDS: LIDOCAINE 3.5 % 1ML OPHTH TOPICAL GEL OU ONE (12:06)
[2024-11-13] MEDS ORDERED: fentaNYL 100 MCG/2 ML INJECTION As Ordered ONE (12:36)
[2024-11-13] MEDS ORDERED: MIDAZOLAM INJ 2MG/2ML VIAL As Ordered ONE (12:36)
[2024-11-13] MEDS: POVIDONE-IODINE 5% OPHTH PREP SOL 30ML As Ordered ONE (13:02)
[2024-11-13] MEDS ORDERED: dexmedeTOMIDine (4MCG/ML)200MCG/50ML BTL (PRECEDEX) As Ordered ONE (13:10)
[2024-11-13] MEDS: TOBRADEX OPHTH OINT 3.5 GM As Ordered ONE (13:39)
[2024-11-13] MEDS: LIDOCAINE 2% W/EPINEPHRINE 20ML VIAL **PRES FREE As Ordered ONE (13:39)
[2024-11-13 13:40] VITALS: BP 115/56; TEMP 97.9; O2SAT 97
== END 2024-11-13 14:15 | disposition home or self-care (01) ==
LOC: M SDC 11:04
PROVIDERS: ATTEND Ophthalmology
DX: H02.834 Dermatochalasis of left upper eyelid (principal); H02.831 Dermatochalasis of right upper eyelid; J45.909 Unspecified asthma, uncomplicated; E78.00 Pure hypercholesterolemia, unspecified; Z79.899 Other long term (current) drug therapy; Z79.51 Long term (current) use of inhaled steroids; I25.2 Old myocardial infarction; Z98.41 Cataract extraction status, right eye; Z98.42 Cataract extraction status, left eye
CPT/HCPCS: 15823; 88302; J2250; J3010

== ENCOUNTER → 2025-05-27 | Outpatient (CLI) | payer BC | LOC: M RAD 14:22 | PROVIDERS: ATTEND Physician Assistant | DX: Z12.2 Encounter for screening for malignant neoplasm of respiratory organs (principal); Z87.891 Personal history of nicotine dependence ==

== ENCOUNTER → 2025-10-15 | Outpatient (CLI) | payer BC | LOC: M PLALAB 08:33 | PROVIDERS: ATTEND Nurse Practitioner Family | DX: Z01.84 Encounter for antibody response examination (principal) ==